=== PATIENT | female | born 1960 | race African-American/Black ===

== ENCOUNTER 2021-01-30 08:16 | Emergency (ER) | payer OTHER ==
[~2021-01-30] VITALS: Ht 157.5 cm; Wt 73.6 kg
[2021-01-30] MEDS ORDERED: LOSA-73 PO (08:45)
--- NOTE | 2021-01-30 08:46 | ED.ADGEN ---
General Adult EDM: Chief Complaint: HYPERTENSION HPI: HPI: Patient is a 60 year old female coming in for high blood pressure reading at home. Patient states she has no symptoms but was checking her blood pressure today because she saw her primary care provider yesterday and was started on lisinopril. Patient has a known history of hypertension but is noncompliant with her medications. Patient states she was prescribed lisinopril but does not like it because it has a "stimulant effect" causing her to be awake at night and also gives her headaches. Patient has not been taking her medications but checked her blood pressure this morning as directed by her physician. No other symptoms. Patient states she has tried lisinopril, amlodipine, and a "water pill" in the past but does not like the side effects and that is why she is noncompliant. Review of Systems: Review of Systems: All other systems within normal limits except for as noted in the HPI Allergies: Allergies: Allergies Coded Allergies Type Severity Reaction Last Updated Verified Penicillins Allergy Severe RASH 01/30/21 Yes Physical Exam: PE: Constitutional: Well developed, well nourished, no acute distress, non-toxic appearance. [] HENT: Normocephalic, atraumatic, bilateral external ears normal, nose normal. [] Eyes: PERRLA, conjunctiva normal, no discharge. [] Neck: No rigidity, supple, no stridor. [] Cardiovascular: Regular rate and rhythm, brisk cap refill [] Lungs & Thorax: Non labored symmetric respirations, no tachypnea or respiratory distress [] Abdomen: Soft, nondistended. Skin: Warm, dry, no erythema, no rash. [] Back: Unremarkable Extremities: No deformities, range of motion grossly intact, no lower extremity edema [] Neurologic: Alert and oriented X 3, no focal deficits noted. [] Psychologic: Affect normal, judgement normal, mood normal. [] EKG: EKG: [] Heart Score: C/O Chest Pain: No Risk Factors: Risk Factors: DM, Current or recent (<one month) smoker, HTN, HLP, family history of CAD, obesity. Risk Scores: Score 0 - 3: 2.5% MACE over next 6 weeks - Discharge Home Score 4 - 6: 20.3% MACE over next 6 weeks - Admit for Clinical Observation Score 7 - 10: 72.7% MACE over next 6 weeks - Early Invasive Strategies Radiology/Procedures: Radiology/Procedures: [] Course & Med Decision Making: Course & Med Decision Making Patient with asymptomatic sick hypertension and noncompliance with her medications. Discussed we can try a different line of medication and have her follow-up with her primary care to recheck her blood pressure. Deena Disclaimer: Denea Disclaimer: This electronic medical record was generated, in whole or in part, using a voice recognition dictation system. Departure Departure Impression: Primary Impression: Hypertension Disposition: HOME / SELF CARE / HOMELESS Condition: IMPROVED Referrals: UNKNOWN PCP NAME (PCP) Patient Instructions: Hypertension Scripts Losartan Potassium (LOSARTAN POTASSIUM) 50 Mg Tablet 50 MG PO DAILY for HYPERTENSION for 30 Days, #30 TAB Prov: SAIMA LOVE MD 01/30/21 SAIMA LOVE MD Jan 30, 2021 08:46
[2021-01-30 08:55] VITALS: BP 172/95
== END 2021-01-30 08:55 | disposition home or self-care (01) ==
LOC: ER 08:16
DX: I10 Essential (primary) hypertension (principal); Z91.14 Patient's other noncompliance with medication regimen; Z88.0 Allergy status to penicillin
CPT/HCPCS: 99283

== ENCOUNTER 2021-02-01 02:21 | Emergency (ER) | payer OTHER ==
[~2021-02-01] VITALS: Ht 154.9 cm; Wt 73.6 kg
[~2021-02-01 02:21] MED LIST: LOSA-73 PO
[2021-02-01] MEDS ORDERED: cloNIDine HCL 0.1 MG TABLET PO ONE (03:00)
[2021-02-01 03:03] VITALS: BP 165/93
[2021-02-01] MEDS ORDERED: CLON0.1T PO (03:06)
--- NOTE | 2021-02-01 03:07 | PHYS DOC ---
Past Medical History Past Medical History: Hypertension Past Surgical History: Other Additional Past Surgical Histo: LEFT KIDNEY Smoking Status: Former Smoker Alcohol Use: None Drug Use: None General Adult EDM: Chief Complaint: HYPERTENSION HPI: HPI: Patient is a 60 year old female presents with concern for elevated blood pressure. Reports at home was noted to be 170s/90s. Armand was just seen in ED on 01/30/21 for same and was started on Losartan. Reports she just started with a new PCP who placed her on Lisinopril. Armand has had lisinopril in the past but hasn't been effective. Patient reports she is not sure if Losartan is any better. Reports some mild headache. Denies chest pain or SOA. Denies fever/chills. Review of Systems: Review of Systems: Constitutional: Denies fever or chills Eyes: Denies redness or eye pain HENT: Denies nasal congestion or sore throat Respiratory: Denies cough or shortness of breath Cardiovascular: Denies chest pain or palpitations GI: Denies abdominal pain, nausea, or vomiting : Denies dysuria or hematuria Musculoskeletal: Denies back pain or joint pain Integument: Denies rash or skin lesions Neurologic: Reports mild headache; denies focal weakness or sensory changes Complete systems were reviewed and found to be within normal limits, except as documented in this note. Heart Score: C/O Chest Pain: N/A Current Medications: Current Medications Medications (Trade) Dose Ordered Sig/Stephany Start Time Stop Time Status Last Admin Dose Admin Clonidine HCl (Catapres) 0.1 mg 1X ONCE 02/01/21 03:00 02/01/21 03:01 MO Allergies: Allergies: Allergies Coded Allergies Type Severity Reaction Last Updated Verified Penicillins Allergy Severe RASH 01/30/21 Yes Physical Exam: PE: Constitutional: Well developed, well nourished, no acute distress, non-toxic appearance HENT: Normocephalic, atraumatic Eyes: PERRL, EOMI, conjunctiva normal, no discharge Neck: Normal range of motion, no tenderness, supple Lungs & Thorax: No respiratory distress, equal chest rise and fall Abdomen: Soft, no tenderness Skin: Warm, dry, no erythema, no rash Extremities: No tenderness, ROM intact, no edema Neurologic: Alert and oriented X 3, normal motor function, normal sensory function, no focal deficits noted Psychologic: Affect normal, judgment normal Current Patient Data: Vital Signs: Vital Signs Date Time Temp Pulse Resp B/P (MAP) Pulse Ox O2 Delivery O2 Flow Rate FiO2 02/01/21 02:30 97.2 64 16 185/93 (120) 98 Room Air 97.2 EKG: EKG: [] Radiology/Procedures: Radiology/Procedures: [] Course & Med Decision Making: Course & Med Decision Making Patient reports concern for elevated blood pressure tonight upon waking. Patient reports it was in the 170s over 90s. Patient was seen 2 days ago for same. Patient had recently been started on lisinopril by her PCP but she reports she did not like the way it made her feel. Patient therefore had not been taking her medication and noticed an elevated blood pressure. Patient was recently started on losartan. Reports concern that the medication does not appear to be working. Educated patient regarding need to be on a medication in order for it to build in your system. Patient would need to follow with her PCP for further adjustment however blood pressure in emergency department got up to 190s over 100s. Decision to give patient dose of clonidine with prescription for as needed clonidine if systolic blood pressure greater than 175 and or diastolic blood pressure greater than 100. Patient neurologically intact. Patient stable for discharge with outpatient follow-up with PCP. Discussed findings and plan with patient, who acknowledges understanding and agreement. Deena Disclaimer: Deena Disclaimer: This electronic medical record was generated, in whole or in part, using a voice recognition dictation system. Departure Departure Impression: Primary Impression: Hypertension Qualified Codes: I10 - Essential (primary) hypertension Disposition: HOME / SELF CARE / HOMELESS Condition: STABLE Referrals: UNKNOWN PCP NAME (PCP) Patient Instructions: Hypertension, [id number] Additional Instructions: Keep a blood pressure journal to provided to your family physician upon next visit. Scripts Clonidine Hcl (CLONIDINE HCL) 0.1 Mg Tablet 0.1 MG PO BID PRN for ELEVATED BP, SEE COMMENTS, #20 TAB Take for systolic (upper) blood pressure > 175 and/or diastolic (lower) blood pressure > 100. Prov: TATYANA HOUSE DO 02/01/21 TATYANA HOUSE DO Feb 01, 2021 03:07
== END 2021-02-01 03:15 | disposition home or self-care (01) ==
LOC: ER 02:21
DX: I10 Essential (primary) hypertension (principal); R51.9 Headache, unspecified; Z87.891 Personal history of nicotine dependence
CPT/HCPCS: 99283

== ENCOUNTER 2021-02-06 18:16 | Emergency (ER) | payer OTHER ==
[~2021-02-06] VITALS: Ht 157.5 cm; Wt 73.6 kg
[~2021-02-06 18:16] MED LIST changes: +CLON0.1T PO
--- NOTE | 2021-02-06 18:28 | PHYS DOC ---
Past Medical History Past Medical History: Hypertension Past Surgical History: Other Additional Past Surgical Histo: LEFT KIDNEY Smoking Status: Former Smoker Alcohol Use: None Drug Use: None General Adult EDM: Chief Complaint: CHEST PAIN HPI: HPI: 60-year-old female with a history of hypertension, borderline diabetes presents to the emergency department complaining of intermittent chest pain for the past 1 month. She also reports that the chest pain happened about 1 year ago. She has chest pain on the left side of her chest, nonradiating, feels like a dull sensation, not made better or worse by anything. She is not tried any medications for pain. She reports that she has had trouble controlling her blood pressure lately and takes clonidine for her pressure. The patient denies radiation of pain, sweating, shortness of air, nausea, vomiting, abdominal pain, cough. She has been vaccinated for COVID-19 Review of Systems: Review of Systems: ROS is otherwise negative except what was mentioned in HPI Heart Score: C/O Chest Pain: Yes HEART Score for Chest Pain: HEART Score for Chest Pain Response (Comments) Value History Slighlty/Non-Suspicious 0 ECG Normal 0 Age >45 - < 65 1 Risk Factors 1 or 2 Risk Factors 1 Troponin < Normal Limit 0 Total 2 Allergies: Allergies: Allergies Coded Allergies Type Severity Reaction Last Updated Verified Penicillins Allergy Severe RASH 01/30/21 Yes Physical Exam: PE: Constitutional: No acute distress, non-toxic appearance. HENT: Atraumatic, bilateral external ears normal, nose normal. Eyes: Conjunctiva normal, no discharge. Neck: Normal range of motion, supple, no stridor. Cardiovascular: Heart rate regular rhythm. 2+ radial pulses and equal Lungs & Thorax: No respiratory distress, symmetrical expansion. Bilateral breath sounds clear to auscultation Chest wall: No reproducible chest wall tenderness to palpation, no lesions. Abdomen: Soft, no tenderness Skin: Warm, dry. Extremities: No tenderness, no cyanosis, ROM intact, no edema. Neurologic: Alert and oriented X 3, normal motor function, normal sensory function, no focal deficits noted. GCS 15. Psychologic: Affect normal, judgment normal, mood normal. Current Patient Data: Labs: Laboratory Tests Test 02/06/21 18:40 White Blood Count 6.1 x10^3/uL (4.0-11.0) Red Blood Count 3.92 x10^6/uL (3.50-5.40) Hemoglobin 11.6 g/dL (12.0-15.5) Hematocrit 34.9 % (36.0-47.0) Mean Corpuscular Volume 89 fL (79-100) Mean Corpuscular Hemoglobin 30 pg (25-35) Mean Corpuscular Hemoglobin Concent 33 g/dL (31-37) Red Cell Distribution Width 13.7 % (11.5-14.5) Platelet Count 191 x10^3/uL (140-400) Neutrophils (%) (Auto) 51 % (31-73) Lymphocytes (%) (Auto) 35 % (24-48) Monocytes (%) (Auto) 9 % (0-9) Eosinophils (%) (Auto) 4 % (0-3) Basophils (%) (Auto) 1 % (0-3) Neutrophils # (Auto) 3.1 x10^3/uL (1.8-7.7) Lymphocytes # (Auto) 2.1 x10^3/uL (1.0-4.8) Monocytes # (Auto) 0.5 x10^3/uL (0.0-1.1) Eosinophils # (Auto) 0.3 x10^3/uL (0.0-0.7) Basophils # (Auto) 0.1 x10^3/uL (0.0-0.2) Sodium Level 145 mmol/L (136-145) Potassium Level 4.1 mmol/L (3.5-5.1) Chloride Level 109 mmol/L (98-107) Carbon Dioxide Level 27 mmol/L (21-32) Anion Gap 9 (6-14) Blood Urea Nitrogen 23 mg/dL (7-20) Creatinine 0.9 mg/dL (0.6-1.0) Estimated GFR (Cockcroft-Gault) 77.0 Glucose Level 109 mg/dL (70-99) Calcium Level 9.2 mg/dL (8.5-10.1) Troponin I Quantitative < 0.017 ng/mL (0.000-0.055) FH-Djz-F-Type Natriuretic Peptide 162 pg/mL (0-124) My Orders - WILSON COOK DO Procedure Category Date Status Time Basic Metabolic Panel LAB 02/06/21 Complete 18:36 Cbc W Autodiff LAB 02/06/21 Complete 18:36 Portable Chest 1v RAD 02/06/21 Taken 18:36 Nt-Pro Bnp LAB 02/06/21 Complete 18:36 Troponini LAB 02/06/21 Complete 18:36 Ketorolac 15mg Vial PHA 02/06/21 Complete (Toradol 15mg Vial) 19:15 Iv Normal Saline PHA 02/06/21 Complete 1000ml Bag (Iv Sodium 18:45 Vital Signs: Vital Signs Date Time Temp Pulse Resp B/P (MAP) Pulse Ox O2 Delivery O2 Flow Rate FiO2 02/06/21 19:54 50 11 185/84 (117) 100 Room Air 02/06/21 19:24 54 10 178/83 (114) 99 Room Air 02/06/21 18:54 60 15 178/83 (114) 99 Room Air 02/06/21 18:20 98.6 49 18 175/82 (113) 100 Room Air 98.6 EKG: EK: Normal sinus rhythm rate of 50, no ST-T wave changes, no ectopic beats, normal axis, normal MS, QRS, and QTc intervals. Impression: Normal EKG. interpreted by me, Wilson Cook D.O. Radiology/Procedures: Radiology/Procedures: Of note, due to the system problem I was not able to directly view this patient's images nor look at the reads. I called the radiologist to obtain the radiology report verbally. Per radiologist, the patient has no acute cardiopulmonary finding on x-ray Course & Med Decision Making: Course & Med Decision Making Heart score 2, patient with chronic chest pain symptoms, likely musculoskeletal related. Will discharge to follow-up with primary care provider. Well's score 0 Departure Departure Impression: Primary Impression: Chest pain Disposition: HOME / SELF CARE / HOMELESS Condition: IMPROVED Referrals: UNKNOWN PCP NAME (PCP) Patient Instructions: Chest Pain (Nonspecific), [id number] Additional Instructions: You were seen in the emergency department and your health condition was deemed not to require admission to the hospital. It is important to realize that we can only evaluate you during the time that you are in her department. Occasionally health conditions can worsen upon leaving the emergency department. If this were to happen, please return to and allow us the opportunity to reevaluate you. It is a pleasure to take care of your health needs. Return to the ER if your symptoms worsen, do not improve, or if you develop additional symptoms that are concerning to you WILSON COOK DO Feb 06, 2021 18:28
[2021-02-06] MEDS ORDERED: IV NORMAL SALINE 1000ML BAG 1,000 ML IV ONE (18:45)
[2021-02-06 18:49] LABS: BASO # 0.1 x10^3/uL (0.0-0.2); BASO % 1 % (0-3); EOS # 0.3 x10^3/uL (0.0-0.7); EOS % 4 % (0-3); HEMATOCRIT 34.9 % (36.0-47.0); HEMOGLOBIN 11.6 g/dL (12.0-15.5); LYMPH # 2.1 x10^3/uL (1.0-4.8); LYMPH % 35 % (24-48); MEAN CORPUSCULAR HEMOGLOBIN 30 pg (25-35); MEAN CORPUSCULAR HGB CONC 33 g/dL (31-37); MEAN CORPUSCULAR VOLUME 89 fL (79-100); MONO # 0.5 x10^3/uL (0.0-1.1); MONO % 9 % (0-9); NEUT # 3.1 x10^3/uL (1.8-7.7); NEUT % 51 % (31-73); PLATELET COUNT 191 x10^3/uL (140-400); RED BLOOD COUNT 3.92 x10^6/uL (3.50-5.40); RED CELL DISTRIBUTION WIDTH 13.7 % (11.5-14.5); WHITE BLOOD COUNT 6.1 x10^3/uL (4.0-11.0)
[2021-02-06 18:59] LABS: CALCIUM 9.2 mg/dL (8.5-10.1); CREATININE 0.9 mg/dL (0.6-1.0); POTASSIUM 4.1 mmol/L (3.5-5.1)
[2021-02-06] MEDS ORDERED: KETOROLAC 15 MG/ML VIAL. IVP ONE (19:15)
[2021-02-06 20:24] VITALS: BP 182/89
--- NOTE | 2021-02-06 21:19 | RAD ---
Exam: Chest one view INDICATION: Chest pain TECHNIQUE: Frontal view of the chest Comparisons: None FINDINGS: The cardiomediastinal silhouette and pulmonary vessels are within normal limits. The lung and pleural spaces are clear. IMPRESSION: No acute cardiopulmonary process. Electronically signed by: Uzair Patrick MD (02/06/2021 9:16 PM) MARY
--- NOTE | 2021-02-08 01:32 | EKG ---
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
== END 2021-02-06 20:26 | disposition home or self-care (01) ==
LOC: ER 18:16
DX: R07.89 Other chest pain (principal); I10 Essential (primary) hypertension; Z87.891 Personal history of nicotine dependence; Z88.0 Allergy status to penicillin
CPT/HCPCS: 36415; 71045; 80048; 83880; 84484; 85025; 96360; 99285; J7030; 93005